=== PATIENT | female | born 1985 | race Caucasian/White ===

== ENCOUNTER 2016-09-11 15:17 | Emergency (ER) | payer BC ==
[2016-09-11 16:39] LABS: HEMOGLOBIN 13.4 gm/dl (12.3-15.3); RED BLOOD COUNT 4.52 M/UL (4.00-5.10); WHITE BLOOD COUNT 12.9 K/UL (4.5-11.0)
[2016-09-11 16:57] LABS: BUN/CREATININE RATIO 8 (0-10)
== END 2016-09-11 18:00 | disposition home or self-care (01) ==
LOC: ER1 15:17
PROVIDERS: Physician Assistant
DX: O99.611 Diseases of the digestive system complicating pregnancy, first trimester (principal); K80.70 Calculus of gallbladder and bile duct without cholecystitis without obstruction; Z3A.11 11 weeks gestation of pregnancy; Z79.84 Long term (current) use of oral hypoglycemic drugs
CPT/HCPCS: 36415; 76705; 76801; 80053; 81001; 83690; 84702; 85025; 99284

== ENCOUNTER 2016-09-23 22:32 | Observation (INO) | payer BC ==
[2016-09-24 01:38] LABS: HEMOGLOBIN 13.6 gm/dl (12.3-15.3); RED BLOOD COUNT 4.62 M/UL (4.00-5.10); WHITE BLOOD COUNT 8.3 K/UL (4.5-11.0)
[2016-09-24 01:59] LABS: BUN/CREATININE RATIO 12 (0-10)
[2016-09-24] MEDS ORDERED: GLUCOPHAGE 500500 MG PO (09:58)
[2016-09-24] MEDS ORDERED: FOLIC ACID0.8 MG PO (09:59)
[2016-09-24] MEDS ORDERED: UNISOM25 MG PO (10:00)
[2016-09-24] MEDS ORDERED: VITAMIN B-625 MG PO (10:00)
[2016-09-25 04:51] LABS: WHITE BLOOD COUNT 7.2 K/UL (4.5-11.0)
[2016-09-25 04:52] LABS: HEMOGLOBIN 11.6 gm/dl (12.3-15.3); RED BLOOD COUNT 3.96 M/UL (4.00-5.10)
[2016-09-25 05:03] LABS: BUN/CREATININE RATIO 5 (0-10)
[2016-09-25] MEDS ORDERED: ZOFRAN8 MG PO (19:41)
== END 2016-09-25 19:59 | disposition home or self-care (01) ==
LOC: ER1 22:32 → ZEROF 09-24 06:15 → MED SURG 4 09-24 08:37
PROVIDERS: Family Medicine; ADMIT Obstetrics & Gynecology
DX: O99.611 Diseases of the digestive system complicating pregnancy, first trimester (principal); K80.20 Calculus of gallbladder without cholecystitis without obstruction; A08.4 Viral intestinal infection, unspecified; E87.6 Hypokalemia; E86.0 Dehydration; Z3A.14 14 weeks gestation of pregnancy; Z87.19 Personal history of other diseases of the digestive system
CPT/HCPCS: 36415; 80053; 81001; 83690; 85025; 96361; 96372; 96374; 96375; 96376; 99284; G0378; J0500; J2405; J2765; J7030; J7120; Q0162

== ENCOUNTER 2017-04-03 16:32 | Inpatient (IN) | payer BC ==
[~2017-04-03 16:32] MED LIST: FOLIC ACID0.8 MG PO; GLUCOPHAGE 500500 MG PO; UNISOM25 MG PO; VITAMIN B-625 MG PO; ZOFRAN8 MG PO
[2017-04-03 20:50] LABS: HEMOGLOBIN 12.8 gm/dl (12.3-15.3); RED BLOOD COUNT 4.38 M/UL (4.00-5.10); WHITE BLOOD COUNT 13.7 K/UL (4.5-11.0)
== END 2017-04-06 14:25 | disposition home or self-care (01) | DRG 775 ==
LOC: GENOP 16:32 → OB 19:56
PROVIDERS: Obstetrics & Gynecology; ADMIT Obstetrics & Gynecology
PROC: 0U7C7ZZ Dilation of Cervix, Via Natural or Artificial Opening (ICD-10-PCS; 2017-04-03)
PROC: 10E0XZZ Delivery of Products of Conception, External Approach (ICD-10-PCS; principal; 2017-04-04)
PROC: 0KQM0ZZ Repair Perineum Muscle, Open Approach (ICD-10-PCS; 2017-04-04)
PROC: 10907ZC Drainage of Amniotic Fluid, Therapeutic from Products of Conception, Via Natural or Artificial Opening (ICD-10-PCS; 2017-04-04)
PROC: 3E0P7VZ Introduction of Hormone into Female Reproductive, Via Natural or Artificial Opening (ICD-10-PCS; 2017-04-04)
PROC: 3E0P3VZ Introduction of Hormone into Female Reproductive, Percutaneous Approach (ICD-10-PCS; 2017-04-04)
PROC: 3E0234Z Introduction of Serum, Toxoid and Vaccine into Muscle, Percutaneous Approach (ICD-10-PCS; 2017-04-04)
DX: O48.0 Post-term pregnancy (principal); Z3A.40 40 weeks gestation of pregnancy; O70.1 Second degree perineal laceration during delivery; Z23 Encounter for immunization; O62.2 Other uterine inertia; O99.213 Obesity complicating pregnancy, third trimester; Z37.0 Single live birth
CPT/HCPCS: 36415; 51702; 81001; 82800; 85014; 85018; 85025; 90715; J2210; J2405; J2590; J2795; J3010; J3430; J7120

== ENCOUNTER 2021-04-30 16:23 | Inpatient (IN) | payer BC ==
[~2021-04-30] VITALS: Ht 165.1 cm; Wt 104.3 kg
[~2021-04-30 16:23] MED LIST changes: +COLACE100 MG PO; +IBU600 MG PO; +NORCO 5-325 TA1 EACH PO
[2021-04-30 17:09] LABS: HEMOGLOBIN 12.1 gm/dl (12.3-15.3); RED BLOOD COUNT 4.44 M/UL (4.00-5.10); WHITE BLOOD COUNT 12.1 K/UL (4.5-11.0)
[2021-04-30] MEDS ORDERED: UNISOM25 MG PO (17:53)
[2021-04-30] MEDS ORDERED: VITAMIN B6100 MG/2.5 PO (17:54)
[2021-04-30] MEDS ORDERED: PROTONIX 40 MG40 M1 PO (17:55)
[2021-05-01] MEDS ORDERED: DOCUSATE SODIU100 MG PO (16:21)
[2021-05-01] MEDS ORDERED: IBUPROFEN600 MG PO (16:21)
[2021-05-01] MEDS ORDERED: HYDROCODON-ACE1 EAC4 PO (16:21)
[2021-05-02 06:49] LABS: HEMOGLOBIN 10.7 gm/dl (12.3-15.3)
== END 2021-05-03 20:00 | disposition home or self-care (01) | DRG 806 ==
LOC: GENOP 16:23 → OB 16:39
PROVIDERS: Obstetrics & Gynecology; ADMIT Obstetrics & Gynecology
PROC: 10E0XZZ Delivery of Products of Conception, External Approach (ICD-10-PCS; principal; 2021-05-01)
PROC: 10907ZC Drainage of Amniotic Fluid, Therapeutic from Products of Conception, Via Natural or Artificial Opening (ICD-10-PCS; 2021-05-01)
PROC: 10H07YZ Insertion of Other Device into Products of Conception, Via Natural or Artificial Opening (ICD-10-PCS; 2021-05-01)
PROC: 4A1H7CZ Monitoring of Products of Conception, Cardiac Rate, Via Natural or Artificial Opening (ICD-10-PCS; 2021-05-01)
PROC: 10H073Z Insertion of Monitoring Electrode into Products of Conception, Via Natural or Artificial Opening (ICD-10-PCS; 2021-05-01)
PROC: 0HQ9XZZ Repair Perineum Skin, External Approach (ICD-10-PCS; 2021-05-01)
DX: O99.52 Diseases of the respiratory system complicating childbirth (principal); O98.32 Other infections with a predominantly sexual mode of transmission complicating childbirth; Z37.0 Single live birth; O70.0 First degree perineal laceration during delivery; Z20.822 Contact with and (suspected) exposure to COVID-19; O99.892 Other specified diseases and conditions complicating childbirth; K21.9 Gastro-esophageal reflux disease without esophagitis; K44.9 Diaphragmatic hernia without obstruction or gangrene; O99.344 Other mental disorders complicating childbirth; F32.A Depression, unspecified; A63.0 Anogenital (venereal) warts; Z3A.38 38 weeks gestation of pregnancy; Z90.49 Acquired absence of other specified parts of digestive tract; O99.62 Diseases of the digestive system complicating childbirth
CPT/HCPCS: 51702; 81001; 82800; 85014; 85018; 85025; J2405; J2550; J2590; J7120